=== PATIENT | female | born 1940 | race Caucasian/White ===

== ENCOUNTER 2024-05-24 18:53 | Emergency (ER) | payer MEDICARE, OTHER ==
[~2024-05-24 18:53] MED LIST: Iopamidol-370 76% 500 ML MDV (1 ML CHARGE) ONE
[2024-05-24] MEDS ORDERED: Ondansetron PF 4 MG/2 ML Vial ONE (19:51)
[2024-05-24 20:02] LABS: #Basophils 0.04 10x3/uL (0.0-0.2); %Basophils 0.3 % (0.0-1.0); %Eosinophils 0.3 % (0.0-10.0); %Lymphocytes 5.8 % (21.0-51.0); %Monocytes 4.3 % (0.0-10.0); %Neutrophils 88.8 % (42.0-75.0); Hematocrit 35.2 % (36.0-47.0); Hemoglobin 11.2 g/dL (12.0-16.0); Mean Corpuscular HGB CONC 31.8 g/dL (32.0-36.0); Mean Corpuscular Hemoglobin 29.9 pg (27.0-31.0); Mean Corpuscular Volume 93.9 fL (78.0-98.0); Mean Platelet Volume 11.1 fL (7.4-10.4); Platelet Count 252 10x3/uL (130-400); RBC Distribution Width 15.7 % (11.5-14.5); Red Blood Cell (RBC) Count 3.75 mill/uL (4.20-5.40)
[2024-05-24 20:14] LABS: ALT (SGPT) 8 U/L (Less than 34); AST (SGOT) 31 U/L (11-34); Albumin 2.7 g/dL (3.1-4.5); Alkaline Phosphatase 106 U/L (40-110); Anion Gap 22 mmol/L (10-20); BUN (Urea Nitrogen) 26 mg/dL (9.8-20.1); Bilirubin, Total 0.8 mg/dL (0.3-1.2); Calc. Creatinine Clearance 0 mL/min (70-130); Calcium 9.2 mg/dL (7.8-10.44); Carbon Dioxide 21 mmol/L (23-31); Chloride 103 mmol/L (98-107); Estimated GFR 34; Globulin 3.5 g/dL (2.4-3.5); Glucose 105 mg/dL (83-110); Lipase 11 U/L (8-78); Potassium 3.7 mmol/L (3.5-5.1); Protein, Total 6.2 g/dL (5.8-8.1); Sodium 142 mmol/L (136-145)
[2024-05-24 20:18] LABS: Troponin I 0.138 ng/mL (< 0.028)
[2024-05-24 23:02] LABS: Troponin I 0.121 ng/mL (< 0.028)
== END 2024-05-25 05:23 | disposition home or self-care (01) ==
LOC: ERS 18:53
DX: R10.32 Left lower quadrant pain (principal); E11.9 Type 2 diabetes mellitus without complications; Z95.0 Presence of cardiac pacemaker
CPT/HCPCS: 74177; 80053; 83690; 84484 ×2; 85025; 93005; 96374; 99284; J2405; Q9967; 36415

== ENCOUNTER 2024-12-07 17:47 | Inpatient (IN) | payer MEDICARE, OTHER ==
[2024-12-07 19:20] LABS: #Basophils 0.06 10x3/uL (0.0-0.2); #Eosinophils 0.05 10x3/uL (0.0-0.7); #Monocytes 0.21 10x3/uL (0.11-0.59); #Neutrophils 7.09 10x3/uL (1.40-6.50); %Basophils 0.7 % (0.0-1.0); %Eosinophils 0.6 % (0.0-10.0); %Lymphocytes 10.4 % (21.0-51.0); %Monocytes 2.5 % (0.0-10.0); %Neutrophils 85.2 % (42.0-75.0); Hematocrit 41.6 % (36.0-47.0); Hemoglobin 12.2 g/dL (12.0-16.0); Mean Corpuscular Hemoglobin 30.3 pg (27.0-31.0); Mean Corpuscular Volume 103.5 fL (78.0-98.0); Platelet Count 187 10x3/uL (130-400); Red Blood Cell (RBC) Count 4.02 mill/uL (4.20-5.40); White Blood Cell (WBC) Count 8.33 10x3/uL (4.8-10.8)
[2024-12-07 19:39] LABS: ALT (SGPT) 13 U/L (Less than 34); AST (SGOT) 32 U/L (11-34); Albumin 3.2 g/dL (3.1-4.5); Alkaline Phosphatase 102 U/L (40-110); Anion Gap 26 mmol/L (10-20); BUN (Urea Nitrogen) 21 mg/dL (9.8-20.1); Bilirubin, Total 0.8 mg/dL (0.3-1.2); Calc. Creatinine Clearance 0 mL/min (70-130); Calcium 9.4 mg/dL (7.8-10.44); Carbon Dioxide 21 mmol/L (23-31); Chloride 101 mmol/L (98-107); Globulin 2.9 g/dL (2.4-3.5); Glucose 81 mg/dL (83-110); Magnesium 2.1 mg/dL (1.6-2.6); Potassium 4.1 mmol/L (3.5-5.1); Sodium 144 mmol/L (136-145)
[2024-12-07 20:01] LABS: Platelet Adequacy Comment Platelets Normal
[2024-12-07] MEDS ORDERED: cefTRIAXone (ROCEPHIN) 2 GM VIAL ONE (20:23)
[2024-12-07] MEDS ORDERED: Acetaminophen 325 MG TAB PO PRN (22:54)
[2024-12-07] MEDS ORDERED: Calcium Carbonate 500 MG ChewTAB PO PRN (22:54)
[2024-12-08] MEDS: cefTRIAXone\\ROCEPHIN 1 GM in Sodium Chloride 0.9% 100 ML IVPB SCH (02:19)
[2024-12-08 04:29] LABS: #Basophils Less than 0.03 10x3/uL (0.0-0.2); #Eosinophils Less than 0.03 10x3/uL (0.0-0.7); #Monocytes 0.04 10x3/uL (0.11-0.59); #Neutrophils 8.49 10x3/uL (1.40-6.50); %Basophils 0.1 % (0.0-1.0); %Eosinophils 0.0 % (0.0-10.0); %Lymphocytes 3.4 % (21.0-51.0); %Monocytes 0.4 % (0.0-10.0); %Neutrophils 95.5 % (42.0-75.0); Hematocrit 37.4 % (36.0-47.0); Hemoglobin 11.0 g/dL (12.0-16.0); Mean Corpuscular Hemoglobin 30.4 pg (27.0-31.0); Mean Corpuscular Volume 103.3 fL (78.0-98.0); Platelet Count 179 10x3/uL (130-400); Red Blood Cell (RBC) Count 3.62 mill/uL (4.20-5.40); White Blood Cell (WBC) Count 8.89 10x3/uL (4.8-10.8)
[2024-12-08 04:43] LABS: ALT (SGPT) 12 U/L (Less than 34); AST (SGOT) 27 U/L (11-34); Albumin 3.2 g/dL (3.1-4.5); Alkaline Phosphatase 99 U/L (40-110); Anion Gap 24 mmol/L (10-20); BUN (Urea Nitrogen) 24 mg/dL (9.8-20.1); Bilirubin, Total 0.5 mg/dL (0.3-1.2); Calc. Creatinine Clearance 23 mL/min (70-130); Calcium 9.2 mg/dL (7.8-10.44); Carbon Dioxide 23 mmol/L (23-31); Chloride 101 mmol/L (98-107); Globulin 2.8 g/dL (2.4-3.5); Glucose 231 mg/dL (83-110); Potassium 4.3 mmol/L (3.5-5.1); Sodium 144 mmol/L (136-145)
[2024-12-08] MEDS: Mometasone 200 MCG/Formoterol 5 MCG 120 PUFF INHALER INH SCH (06:23)
[2024-12-08] MEDS ORDERED: Glucagon 1 MG/ML KIT IM PRN (06:23)
[2024-12-08] MEDS ORDERED: Dextrose 50% Abboject 50 ML SYRINGE SLOW IVP PRN (06:23)
[2024-12-08] MEDS: Pantoprazole 40 MG VIAL IVP SCH (09:08)
[2024-12-08 13:27] LABS: Anion Gap 23 mmol/L (10-20); BUN (Urea Nitrogen) 28 mg/dL (9.8-20.1); Calc. Creatinine Clearance 24 mL/min (70-130); Calcium 8.5 mg/dL (7.8-10.44); Carbon Dioxide 21 mmol/L (23-31); Chloride 101 mmol/L (98-107); Glucose 290 mg/dL (83-110); Potassium 4.2 mmol/L (3.5-5.1); Sodium 141 mmol/L (136-145)
[2024-12-08] MEDS: Heparin 5,000 UNITS/ML VIAL SC SCH (15:11)
[2024-12-08 15:12] VITALS: BMI 21.8
[2024-12-09 10:37] LABS: Anion Gap 19 mmol/L (10-20); BUN (Urea Nitrogen) 34 mg/dL (9.8-20.1); Calc. Creatinine Clearance 24 mL/min (70-130); Calcium 9.0 mg/dL (7.8-10.44); Carbon Dioxide 27 mmol/L (23-31); Chloride 101 mmol/L (98-107); Glucose 272 mg/dL (83-110); Potassium 4.3 mmol/L (3.5-5.1); Sodium 143 mmol/L (136-145)
[2024-12-09 10:54] LABS: Hematocrit 36.4 % (36.0-47.0); Hemoglobin 11.2 g/dL (12.0-16.0); Mean Corpuscular Hemoglobin 30.4 pg (27.0-31.0); Mean Corpuscular Volume 98.9 fL (78.0-98.0); Platelet Count 175 10x3/uL (130-400); Red Blood Cell (RBC) Count 3.68 mill/uL (4.20-5.40); White Blood Cell (WBC) Count 26.39 10x3/uL (4.8-10.8)
[2024-12-09 11:35] LABS: Anisocytosis SLIGHT = 6-15 cells HPF (0-5); Burr Cells MODERATE= 6-15 cells HPF (0-1); Macrocytosis SLIGHT = 6-15 cells HPF (0-5); Ovalocytes SLIGHT = 2-5 cells HPF (0-1); Platelet Adequacy Comment Platelets Normal; Poikilocytosis SLIGHT = 6-15 cells HPF (0-5); Polychromasia SLIGHT = 2-3 cells HPF (0-2)
[2024-12-09] MEDS: guaiFENesin/Codeine 200 mg/20 mg 10 ml Cup PO PRN (16:50)
[2024-12-10 05:40] LABS: Hematocrit 34.1 % (36.0-47.0); Hemoglobin 10.3 g/dL (12.0-16.0); Mean Corpuscular Hemoglobin 30.2 pg (27.0-31.0); Mean Corpuscular Volume 100.0 fL (78.0-98.0); Platelet Count 169 10x3/uL (130-400); Red Blood Cell (RBC) Count 3.41 mill/uL (4.20-5.40); White Blood Cell (WBC) Count 26.31 10x3/uL (4.8-10.8)
[2024-12-10 05:51] LABS: Anion Gap 15 mmol/L (10-20); BUN (Urea Nitrogen) 29 mg/dL (9.8-20.1); Calc. Creatinine Clearance 26 mL/min (70-130); Calcium 9.6 mg/dL (7.8-10.44); Carbon Dioxide 29 mmol/L (23-31); Chloride 103 mmol/L (98-107); Glucose 170 mg/dL (83-110); Potassium 4.0 mmol/L (3.5-5.1); Sodium 143 mmol/L (136-145)
[2024-12-10 06:49] LABS: Anisocytosis SLIGHT = 6-15 cells HPF (0-5); Macrocytosis SLIGHT = 6-15 cells HPF (0-5); Ovalocytes SLIGHT = 2-5 cells HPF (0-1); Platelet Adequacy Comment Platelets Normal; Smudge Cells 1.0 %
[2024-12-10] MEDS: glipiZIDE 5 MG TAB PO SCH (17:24)
[2024-12-11] MEDS: Amiodarone 200 MG TAB PO SCH (08:25)
[2024-12-11 09:00] LABS: #Basophils 0.03 10x3/uL (0.0-0.2); #Eosinophils Less than 0.03 10x3/uL (0.0-0.7); #Monocytes 0.55 10x3/uL (0.11-0.59); #Neutrophils 19.04 10x3/uL (1.40-6.50); %Basophils 0.1 % (0.0-1.0); %Eosinophils 0.0 % (0.0-10.0); %Lymphocytes 2.3 % (21.0-51.0); %Monocytes 2.7 % (0.0-10.0); %Neutrophils 93.5 % (42.0-75.0); Hematocrit 38.2 % (36.0-47.0); Hemoglobin 11.7 g/dL (12.0-16.0); Mean Corpuscular Hemoglobin 30.5 pg (27.0-31.0); Mean Corpuscular Volume 99.5 fL (78.0-98.0); Platelet Count 161 10x3/uL (130-400); Red Blood Cell (RBC) Count 3.84 mill/uL (4.20-5.40); White Blood Cell (WBC) Count 20.37 10x3/uL (4.8-10.8)
[2024-12-11 09:14] LABS: Anion Gap 14 mmol/L (10-20); BUN (Urea Nitrogen) 32 mg/dL (9.8-20.1); Calc. Creatinine Clearance 31 mL/min (70-130); Calcium 9.9 mg/dL (7.8-10.44); Carbon Dioxide 28 mmol/L (23-31); Chloride 104 mmol/L (98-107); Glucose 172 mg/dL (83-110); Potassium 4.4 mmol/L (3.5-5.1); Sodium 142 mmol/L (136-145)
[2024-12-11] MEDS: Furosemide 20 MG (2 mL) VIAL SLOW IVP SCH (16:00)
[2024-12-12] MEDS: Pantoprazole 40 MG DR.TAB PO SCH (08:25)
[2024-12-12] MEDS: predniSONE 20 MG TAB PO SCH (08:25)
[2024-12-12 09:14] LABS: ALT (SGPT) 16 U/L (Less than 34); AST (SGOT) 24 U/L (11-34); Albumin 3.7 g/dL (3.1-4.5); Alkaline Phosphatase 86 U/L (40-110); Anion Gap 17 mmol/L (10-20); BUN (Urea Nitrogen) 35 mg/dL (9.8-20.1); Bilirubin, Total 0.4 mg/dL (0.3-1.2); Calc. Creatinine Clearance 31 mL/min (70-130); Calcium 9.9 mg/dL (7.8-10.44); Carbon Dioxide 30 mmol/L (23-31); Chloride 100 mmol/L (98-107); Globulin 2.6 g/dL (2.4-3.5); Glucose 204 mg/dL (83-110); Magnesium 2.0 mg/dL (1.6-2.6); Potassium 4.3 mmol/L (3.5-5.1); Sodium 143 mmol/L (136-145)
[2024-12-12 09:51] LABS: #Basophils 0.03 10x3/uL (0.0-0.2); #Eosinophils Less than 0.03 10x3/uL (0.0-0.7); #Monocytes 0.50 10x3/uL (0.11-0.59); #Neutrophils 12.29 10x3/uL (1.40-6.50); %Basophils 0.2 % (0.0-1.0); %Eosinophils 0.0 % (0.0-10.0); %Lymphocytes 3.3 % (21.0-51.0); %Monocytes 3.7 % (0.0-10.0); %Neutrophils 90.4 % (42.0-75.0); Hematocrit 40.7 % (36.0-47.0); Hemoglobin 12.6 g/dL (12.0-16.0); Mean Corpuscular Hemoglobin 30.4 pg (27.0-31.0); Mean Corpuscular Volume 98.1 fL (78.0-98.0); Platelet Count 146 10x3/uL (130-400); Red Blood Cell (RBC) Count 4.15 mill/uL (4.20-5.40); White Blood Cell (WBC) Count 13.59 10x3/uL (4.8-10.8)
[2024-12-12] MEDS: Albuterol 2.5 MG (3 mL) NEB NEB PRN (09:56)
[2024-12-12] MEDS: Furosemide 40 MG (4 mL) VIAL SLOW IVP SCH (10:41)
[2024-12-12] MEDS: Magnesium 2 GM/50 ML(in water) 2 GM in Premix 1 BAG IVPB SCH ×2 (11:14→11:50)
[2024-12-13 05:33] LABS: #Basophils 0.06 10x3/uL (0.0-0.2); #Eosinophils Less than 0.03 10x3/uL (0.0-0.7); #Monocytes 0.39 10x3/uL (0.11-0.59); #Neutrophils 10.98 10x3/uL (1.40-6.50); %Basophils 0.5 % (0.0-1.0); %Eosinophils 0.0 % (0.0-10.0); %Lymphocytes 4.0 % (21.0-51.0); %Monocytes 3.2 % (0.0-10.0); %Neutrophils 90.4 % (42.0-75.0); Hematocrit 38.9 % (36.0-47.0); Hemoglobin 11.6 g/dL (12.0-16.0); Mean Corpuscular Hemoglobin 30.1 pg (27.0-31.0); Mean Corpuscular Volume 101.0 fL (78.0-98.0); Platelet Count 153 10x3/uL (130-400); Red Blood Cell (RBC) Count 3.85 mill/uL (4.20-5.40); White Blood Cell (WBC) Count 12.15 10x3/uL (4.8-10.8)
[2024-12-13 06:03] LABS: Anion Gap 22 mmol/L (10-20); BUN (Urea Nitrogen) 36 mg/dL (9.8-20.1); Calc. Creatinine Clearance 30 mL/min (70-130); Calcium 9.4 mg/dL (7.8-10.44); Carbon Dioxide 30 mmol/L (23-31); Chloride 97 mmol/L (98-107); Glucose 187 mg/dL (83-110); Magnesium 2.6 mg/dL (1.6-2.6); Potassium 4.8 mmol/L (3.5-5.1); Sodium 144 mmol/L (136-145)
[2024-12-13 20:19] VITALS: TEMP 97.4
[2024-12-13] MEDS: Ondansetron PF 4 MG/2 ML Vial IVP PRN (23:21)
[2024-12-14 17:11] VITALS: BP 129/64
== END 2024-12-14 17:14 | disposition hospice, home (50) | DRG 871 ==
LOC: ERS 17:47 → IMCU/EMU 21:23 → T4-A 12-09 11:57
PROVIDERS: ADMIT Student in an Organized Health Care Education/Training Program; ATTEND Internal Medicine
PROC: 3E03329 Introduction of Other Anti-infective into Peripheral Vein, Percutaneous Approach (ICD-10-PCS; principal; 2024-12-07)
PROC: 5A09357 Assistance with Respiratory Ventilation, Less than 24 Consecutive Hours, Continuous Positive Airway Pressure (ICD-10-PCS; 2024-12-13)
DX: A41.9 Sepsis, unspecified organism (principal); J18.9 Pneumonia, unspecified organism; J96.00 Acute respiratory failure, unspecified whether with hypoxia or hypercapnia; C34.91 Malignant neoplasm of unspecified part of right bronchus or lung; Z51.5 Encounter for palliative care; Z66 Do not resuscitate; J44.1 Chronic obstructive pulmonary disease with (acute) exacerbation; E87.20 Acidosis, unspecified; I48.20 Chronic atrial fibrillation, unspecified; J44.0 Chronic obstructive pulmonary disease with (acute) lower respiratory infection; R64 Cachexia; N18.30 Chronic kidney disease, stage 3 unspecified; I45.10 Unspecified right bundle-branch block; R91.8 Other nonspecific abnormal finding of lung field; F03.90 Unspecified dementia, unspecified severity, without behavioral disturbance, psychotic disturbance, mood disturbance, and anxiety; E11.65 Type 2 diabetes mellitus with hyperglycemia; E11.22 Type 2 diabetes mellitus with diabetic chronic kidney disease; Z95.0 Presence of cardiac pacemaker; Z90.89 Acquired absence of other organs; Z90.710 Acquired absence of both cervix and uterus; Z90.49 Acquired absence of other specified parts of digestive tract; Z74.01 Bed confinement status; Z98.890 Other specified postprocedural states; Z99.81 Dependence on supplemental oxygen; J43.9 Emphysema, unspecified; Z90.711 Acquired absence of uterus with remaining cervical stump; Z88.2 Allergy status to sulfonamides; Z91.148 Patient's other noncompliance with medication regimen for other reason; Z68.21 Body mass index [BMI] 21.0-21.9, adult
CPT/HCPCS: 36415; 36416; 71045; 71046; 71250; 80048; 80053; 83036; 83605; 83735; 83880; 84145; 84484; 85025; 87040; 87428; 93005; 94640; 94660; 94760; 96374; 96375; J0692; J0696; J1100; J1644; J1815; J1940; J2270; J2405; J2470; J2919; J3475; J7120; J7512; J7611; J7620